=== PATIENT | male | born 1975 | race Hispanic/Latino ===

== ENCOUNTER 2017-07-27 06:19 | Observation (INO) | payer OTHER ==
[2017-07-27 06:34] VITALS: BMI 30.1
[2017-07-27] MEDS ORDERED: Sodium Chloride 0.9% 1,000 ML IV STA ×2 (07:03→07:19)
--- NOTE | 2017-07-27 07:49 | ED PDOC ---
HPI: Abdomen Time Seen by Provider: 07/27/17 07:03 Chief Complaint (Nursing): Abdominal Pain Chief Complaint (Provider): Abdominal Pain History Per: Patient History/Exam Limitations: no limitations Onset/Duration Of Symptoms: Days (x yesterday ) Current Symptoms Are (Timing): Constant Quality Of Discomfort: Sharp, Cramping Associated Symptoms: denies: Fever, Urinary Symptoms Additional Complaint(s): Mr. Alexis is a 41 year old male who presents to the ED complaining of lower abdominal pain since yesterday at 16:00. Patient reports pain is associated with several episodes of vomiting. Patient states he saw blood on toilet paper when wiping, but otherwise, normal bowel movement. Describes pain as sharp/ crampy and constant. Denies fever or urinary symptoms. Patient states he took "vitamin C" and pepto bismol without relief. PMD: Cesar Past Medical History Reviewed: Historical Data, Nursing Documentation, Vital Signs Vital Signs: Last Vital Signs Temp 98.4 F 07/27/17 06:34 Pulse 70 07/27/17 06:34 Resp 18 07/27/17 06:34 BP 158/90 H 07/27/17 06:34 Pulse Ox 99 07/27/17 10:16 - Medical History PMH: No Chronic Diseases - Surgical History Other surgeries: esophageal surgery - Family History Family History: States: Unknown Family Hx - Allergies Allergies/Adverse Reactions: Allergies Allergy/AdvReac Type Severity Reaction Status Date / Time No Known Allergies Allergy Verified 07/27/17 06:34 Review of Systems ROS Statement: Except As Marked, All Systems Reviewed And Found Negative Constitutional: Negative for: Fever Gastrointestinal: Positive for: Vomiting, Abdominal Pain Genitourinary Male: Negative for: Dysuria, Hematuria Physical Exam - Reviewed Nursing Documentation Reviewed: Yes Vital Signs Reviewed: Yes - Physical Exam Appears: Positive for: Well Head Exam: Positive for: ATRAUMATIC, NORMAL INSPECTION, NORMOCEPHALIC Skin: Positive for: Normal Color, Warm, Dry Eye Exam: Positive for: Normal appearance, EOMI, PERRL ENT: Positive for: Normal ENT Inspection Neck: Positive for: Normal Cardiovascular/Chest: Positive for: Regular Rate, Rhythm Respiratory: Positive for: Normal Breath Sounds. Negative for: Respiratory Distress Gastrointestinal/Abdominal: Positive for: Tenderness (Lower abdominal tenderness right greater than left) Back: Positive for: Normal Inspection Extremity: Positive for: Normal ROM. Negative for: Deformity Neurologic/Psych: Positive for: Alert, Oriented (x 3) - Laboratory Results Result Diagrams: 07/27/17 07:55 18 07:55 - ECG O2 Sat by Pulse Oximetry: 99 (RA) Pulse Ox Interpretation: Normal Medical Decision Making Medical Decision Making: Work up for acute abdominal pain with CT abd/pelvis and pain medicine Time: 07:03 Plan: - CMP - Lipase - CBC - Bentyl 10 mg PO STAT - Sodium Chloride 0.9% 1,000 ml IV, 1,000 mls/hr - Zofran ODT 4 mg PO STAT - Urinalysis Time: 07:19 - CT Abd and Pelvic IV Contrast - Sodium Chloride 0.9% 1,000 ml IV, 1,000 mls/hr - Toradol 30 mg IV ONCE Elevated WBC [15.6 K/uL] Time: 09:50 CT Abd and Pelvic IV Contrast FINDINGS: LOWER THORAX: Unremarkable. LIVER: Unremarkable. No gross lesion or ductal dilatation. GALLBLADDER AND BILE DUCTS: Unremarkable. PANCREAS: Unremarkable. No gross lesion or ductal dilatation. SPLEEN: Unremarkable. ADRENALS: Unremarkable. No mass. KIDNEYS AND URETERS: Unremarkable. No hydronephrosis. No solid mass. VASCULATURE: Unremarkable. No aortic aneurysm. BOWEL: Unremarkable. No obstruction. No gross mural thickening. APPENDIX: Distended appendix measuring 12 mm in diameter with mild periappendiceal inflammatory change. There is an appendicolith at the base of the appendix. No periappendiceal abscess or free air. Findings consistent with uncomplicated acute appendicitis. No cecal inflammatory changes. PERITONEUM: Unremarkable. No free fluid. No free air. LYMPH NODES: Unremarkable. No enlarged lymph nodes. BLADDER: Unremarkable. REPRODUCTIVE: Normal prostate BONES: No acute fracture. OTHER FINDINGS: None. IMPRESSION: Uncomplicated acute appendicitis. No periappendiceal abscess or free air. Remainder the examination is unremarkable. Time: 10:[address] Rocío Fuentes Scribe Attestation: Documented by Camron Hogan, acting as a scribe for Brandon Mcarthur III, DO Provider Scribe Attestation: All medical record entries made by the Scribe were at my direction and personally dictated by me. I have reviewed the chart and agree that the record accurately reflects my personal performance of the history, physical exam, medical decision making, and the department course for this patient. I have also personally directed, reviewed, and agree with the discharge instructions and disposition. Disposition - Disposition Forms: [employer] ([employer])
[2017-07-27 08:00] LABS: BASO % 0.3 % (0.0-2.0); EOS % 0.2 % (0.0-4.0); HEMOGLOBIN 15.9 g/dL (12.0-18.0); LYMPH # 1.3 K/uL (1.0-4.3); LYMPH % 8.4 % (20.0-40.0); MEAN CELL VOLUME 87.4 fl (80.0-94.0); MEAN CORPUSCULAR HEMOGLOBIN 30.2 pg (27.0-31.0); MEAN CORPUSCULAR HGB CONC 34.6 g/dL (33.0-37.0); MEAN PLATELET VOLUME 8.1 fl (7.2-11.7); MONO # 1.1 K/uL (0.0-0.8); NEUT # 13.2 K/uL (1.8-7.0); NEUT % 84.1 % (50.0-75.0); NRBC % 0.1 % (0.0-0.0); PLATELET COUNT 323 K/uL (130-400); RBC 5.27 Mil/uL (4.40-5.90); RED CELL DISTRIBUTION WIDTH 12.8 % (11.5-14.5); WHITE BLOOD COUNT 15.7 K/uL (4.8-10.8)
[2017-07-27 08:23] LABS: ALB/GLOB RATIO 1.2 (1.0-2.1); ALBUMIN 4.9 g/dL (3.5-5.0); ALT/SGPT 58 U/L (21-72); AST/SGOT 27 U/L (17-59); BLOOD UREA NITROGEN 13 mg/dl (9-20); CALCIUM 10.2 mg/dL (8.4-10.2); GFR AFRICAN-AMERICAN > 60; GFR NON-AFRICAN AMERICAN > 60; LIPASE 111 U/L (23-300)
[2017-07-27] MEDS ORDERED: Iohexol 300 100 ML IJ ONE (08:43)
[2017-07-27 08:53] LABS: LYMPHOCYTE 6 % (20-50); MONOCYTE 6 % (0-10); NEUTROPHIL 82 % (42-75); REACTIVE LYMPHOCYTES 6 % (0-0); TOTAL CELLS COUNTED 100
[2017-07-27 08:55] LABS: PLATELET ESTIMATE NORMAL (NORMAL)
--- NOTE | 2017-07-27 09:51 | CT ---
PROCEDURE: CT Abdomen and Pelvis with contrast HISTORY: lower abd pain, R>L, tenderness COMPARISON: None. TECHNIQUE: Contrast dose: 95 cc Omnipaque 300 Radiation dose: Total exam DLP = 906.20 mGy-cm. This CT exam was performed using one or more of the following dose reduction techniques: Automated exposure control, adjustment of the mA and/or kV according to patient size, and/or use of iterative reconstruction technique. FINDINGS: LOWER THORAX: Unremarkable. LIVER: Unremarkable. No gross lesion or ductal dilatation. GALLBLADDER AND BILE DUCTS: Unremarkable. PANCREAS: Unremarkable. No gross lesion or ductal dilatation. SPLEEN: Unremarkable. ADRENALS: Unremarkable. No mass. KIDNEYS AND URETERS: Unremarkable. No hydronephrosis. No solid mass. VASCULATURE: Unremarkable. No aortic aneurysm. BOWEL: Unremarkable. No obstruction. No gross mural thickening. APPENDIX: Distended appendix measuring 12 mm in diameter with mild periappendiceal inflammatory change. There is an appendicolith at the base of the appendix. No periappendiceal abscess or free air. Findings consistent with uncomplicated acute appendicitis. No cecal inflammatory changes. PERITONEUM: Unremarkable. No free fluid. No free air. LYMPH NODES: Unremarkable. No enlarged lymph nodes. BLADDER: Unremarkable. REPRODUCTIVE: Normal prostate BONES: No acute fracture. OTHER FINDINGS: None. IMPRESSION: Uncomplicated acute appendicitis. No periappendiceal abscess or free air. Remainder the examination is unremarkable.
[2017-07-27] MEDS ORDERED: Piperacillin/Tazobact 4.5 GM in Sodium Chloride 0.9% 100 ML IVPB STA (09:58)
[2017-07-27] MEDS ORDERED: Lactated Ringer's 1,000 ML IV SCH ×2 (10:45→19:45)
[2017-07-27 11:08] LABS: URINE BILIRUBIN NEGATIVE (NEGATIVE); URINE BLOOD NEGATIVE (NEGATIVE); URINE CLARITY CLEAR (Clear); URINE COLOR YELLOW (YELLOW); URINE GLUCOSE (UA) NEG (Normal); URINE LEUKOCYTE ESTERASE NEG Leu/uL (Negative); URINE PROTEIN NEGATIVE (NEGATIVE); URINE UROBILINOGEN 0.2-1.0 mg/dL (0.2-1.0)
[2017-07-27 11:17] LABS: INR 1.1 (0.9-1.2); PROTHROMBIN TIME 12.2 Seconds (9.8-13.1)
[2017-07-27 11:18] LABS: PARTIAL THROMBOPLASTIN TIME 27.5 Seconds (25.6-37.1)
--- NOTE | 2017-07-27 12:38 | CP.PCM.CON ---
<NataliyaEmiliano D - Last Filed: 07/27/17 12:33> History of Present Illness - History of Present Illness History of Present Illness: SURGERY CONSULT NOTE FOR DR. WHITFIELD 41M presents with abdominal pain. Patient states pain stated yesterday afternoon and was around the periumbilical region. He states nothing helped the pain and nothing made it worse. Pain has been constant keeping him away from sleeping well. Brock has now migrated towards the lower abdomen and on the right side. Patient denies nausea, but admits to inducing vomiting on himself because he felt like it would make him feel better, but it did not. Denies fevers, admits to chills. Never had this pain before. PMH: denies PSH: ligation of esophageal web. Social: denies tobacco, alcohol abuse, and illicit drug use Allergies: NKDA Past Patient History - Past Social History Smoking Status: Never Smoked - PSYCHIATRIC Hx Substance Use: No - SURGICAL HISTORY Hx Surgeries: No - ANESTHESIA Hx Anesthesia: No Meds Allergies/Adverse Reactions: Allergies Allergy/AdvReac Type Severity Reaction Status Date / Time No Known Allergies Allergy Verified 07/27/17 06:34 - Medications Medications: Current Medications Lactated Ringer's (Lactated Ringer's) 1,000 mls @ 125 mls/hr IV .Q8H [facility] Last Admin: 07/27/17 10:55 Dose: 125 mls/hr Piperacillin Sod/Tazobactam (Sod 3.375 gm/ Sodium Chloride) 100 mls @ 100 mls/ hr IVPB Q6 [facility] PRN Reason: Protocol Physical Exam - Constitutional Appears: Well, Non-toxic, No Acute Distress - Head Exam Head Exam: ATRAUMATIC - Eye Exam Eye Exam: EOMI, PERRL - ENT Exam ENT Exam: Mucous Membranes Moist - Respiratory Exam Respiratory Exam: Clear to Auscultation Bilateral, NORMAL BREATHING PATTERN - Cardiovascular Exam Cardiovascular Exam: REGULAR RHYTHM, +S1, +S2 - GI/Abdominal Exam GI & Abdominal Exam: Soft, Tenderness (RLQ). absent: Distended, Firm, Guarding , Rebound, Rigid - Extremities Exam Extremities exam: Negative for: pedal edema, tenderness - Neurological Exam Neurological exam: Alert, Oriented x3 - Psychiatric Exam Psychiatric exam: Normal Affect, Normal Mood - Skin Skin Exam: Dry, Intact, Normal Color, Warm Results - Vital Signs Recent Vital Signs: Last Vital Signs Temp 98.4 F 07/27/17 06:34 Pulse 65 07/27/17 10:42 Resp 16 07/27/17 10:42 BP 136/86 07/27/17 10:42 Pulse Ox 100 07/27/17 10:42 - Labs Result Diagrams: 07/27/17 07:55 07/27/17 07:55 Labs: Laboratory Results - last 24 hr 07/27/17 07/27/17 07/27/17 07:55 07:55 11:00 WBC 15.7 H RBC 5.27 Hgb 15.9 Hct 46.1 MCV 87.4 MCH 30.2 MCHC 34.6 RDW 12.8 Plt Count 323 MPV 8.1 Neut % (Auto) 84.1 H Lymph % (Auto) 8.4 L [place] % (Auto) 7.0 Eos % (Auto) 0.2 Baso % (Auto) 0.3 Neut # (Auto) 13.2 H Lymph # (Auto) 1.3 [place] # (Auto) 1.1 H Eos # (Auto) 0.0 Baso # (Auto) 0.0 Neutrophils % (Manual) 82 H Lymphocytes % (Manual) 6 L Reactive Lymphs % 6 H Monocytes % (Manual) 6 Platelet Estimate Normal RBC Morphology Normal Macrocytosis (manual) Slight PT INR APTT Sodium 146 Potassium 4.0 Chloride 102 Carbon Dioxide 24 Anion Gap 24 H BUN 13 Creatinine 0.9 Est GFR ( Amer) > 60 Est GFR (Non-Af Amer) > 60 Random Glucose 134 H Calcium 10.2 Total Bilirubin 1.0 AST 27 ALT 58 Alkaline Phosphatase 60 Total Protein 8.8 H Albumin 4.9 Globulin 3.9 Albumin/Globulin Ratio 1.2 Lipase 111 Urine Color Yellow Urine Clarity Clear Urine pH 6.0 Ur Specific [place] 1.040 H Urine Protein Negative Urine Glucose (UA) Neg Urine Ketones Negative Urine Blood Negative Urine Nitrate Negative Urine Bilirubin Negative Urine Urobilinogen 0.2-1.0 Ur Leukocyte Esterase Neg Urine RBC (Auto) 3 Urine Microscopic WBC < 1 07/27/17 11:00 WBC RBC Hgb Hct MCV MCH MCHC RDW Plt Count MPV Neut % (Auto) Lymph % (Auto) [place] % (Auto) Eos % (Auto) Baso % (Auto) Neut # (Auto) Lymph # (Auto) [place] # (Auto) Eos # (Auto) Baso # (Auto) Neutrophils % (Manual) Lymphocytes % (Manual) Reactive Lymphs % Monocytes % (Manual) Platelet Estimate RBC Morphology Macrocytosis (manual) PT 12.2 INR 1.1 APTT 27.5 Sodium Potassium Chloride Carbon Dioxide Anion Gap BUN Creatinine Est GFR ( Amer) Est GFR (Non-Af Amer) Random Glucose Calcium Total Bilirubin AST ALT Alkaline Phosphatase Total Protein Albumin Globulin Albumin/Globulin Ratio Lipase Urine Color Urine Clarity Urine pH Ur Specific [place] Urine Protein Urine Glucose (UA) Urine Ketones Urine Blood Urine Nitrate Urine Bilirubin Urine Urobilinogen Ur Leukocyte Esterase Urine RBC (Auto) Urine Microscopic WBC Assessment & Plan - Assessment and Plan (Free Text) Assessment: 41M with acute appendicitis Plan: NPO IVF Pain control Nausea control Abx OR today for lap appendectomy Discussed with Dr. Roseann An, PGY2 <Fabio Whitfield B - Last Filed: 07/28/17 17:25> Results - Vital Signs Recent Vital Signs: Last Vital Signs Temp 98.7 F 07/28/17 12:25 Pulse 78 07/28/17 12:25 Resp 18 07/28/17 12:25 BP 128/82 07/28/17 12:25 Pulse Ox 97 07/28/17 12:25 - Labs Result Diagrams: 07/28/17 07:25 07/28/17 07:25 Labs: Laboratory Results - last 24 hr 07/28/17 07/28/17 07:25 07:25 WBC 8.3 RBC 4.17 L Hgb 12.6 D Hct 36.7 MCV 88.0 MCH 30.3 MCHC 34.5 RDW 12.8 Plt Count 202 D MPV 8.1 Neut % (Auto) 69.8 Lymph % (Auto) 20.3 Jerome % (Auto) 8.6 Eos % (Auto) 1.1 Baso % (Auto) 0.2 Neut # (Auto) 5.8 Lymph # (Auto) 1.7 Jerome # (Auto) 0.7 Eos # (Auto) 0.1 Baso # (Auto) 0.0 Sodium 142 Potassium 3.2 L Chloride 102 Carbon Dioxide 27 Anion Gap 16 BUN 9 Creatinine 1.0 Est GFR ( Amer) > 60 Est GFR (Non-Af Amer) > 60 Random Glucose 103 Calcium 8.3 L Attending/Attestation - Attestation I have personally seen and examined this patient.: Yes I have fully participated in the care of the patient.: Yes I have reviewed all pertinent clinical information: Yes Notes (Text): Pt was seen and examined at bedside Agree with above note and assessment Pt with Abdominal Pain and RLQ tenderness present Labs and radiology reviewed Ass: Acute Appendicitis with Leucocytosis Plan : OR for Lap Appendectomy possible Open Consent NPO, IVF IV antibiotics c.w current mx Plan d.w pt in detail Risk and benefit explained in detail.
--- NOTE | 2017-07-27 14:15 | CP.PCM.HP ---
History of Present Illness - History of Present Illness History of Present Illness: CC: abdominal pain HPI: 41 y/o man w/ no pmh presents to the ED w/ complaints of abdominal pain. Patient reports right lower quadrant abdominal pain since yesterday at 16:00. The patient reports that pain started in the periumbilical area and then migrated down to the RLQ. Patient reports pain sharp in nature, never happened before, non-radiating, constant, worsened w/ movement and touch, w/ no alleviating factors. Patient was unable to sleep and pain did not subside thus prompting trip to ED. Patient states he took "vitamin C" and pepto bismol without relief. Patient reports pain is associated with chills and several episodes of vomiting. Patient states he saw some blood on toilet paper when wiping, but otherwise, normal bowel movement. Patient denies fever, headache, chest pain, SOB, diarrhea, or dysuria. PMD: Cesar PMH: denies meds: none allergies: NKDA PSH: denies Fam: denies Social: denies smoking, alcohol, and drugs ROS: 12 points assessed and negative unless otherwise reported in HPI Present on Admission - Present on Admission Any Indicators Present on Admission: No History of DVT/PE: No History of Uncontrolled Diabetes: No Urinary Catheter: No Decubitus Ulcer Present: No Review of Systems - Review of Systems All systems: reviewed and no additional remarkable complaints except - Constitutional Constitutional: As Per HPI, Chills. absent: Fever - EENT Eyes: absent: Change in Vision - Cardiovascular Cardiovascular: absent: Chest Pain - Respiratory Respiratory: absent: Dyspnea - Gastrointestinal Gastrointestinal: As Per HPI, Abdominal Pain, Nausea, Vomiting. absent: Diarrhea - Genitourinary Genitourinary: absent: Dysuria - Integumentary Integumentary: absent: Rash - Neurological Neurological: absent: Dizziness, Headaches Past Patient History - Past Social History Smoking Status: Never Smoked - PSYCHIATRIC Hx Substance Use: No - SURGICAL HISTORY Hx Surgeries: No - ANESTHESIA Hx Anesthesia: No Meds Allergies/Adverse Reactions: Allergies Allergy/AdvReac Type Severity Reaction Status Date / Time No Known Allergies Allergy Verified 07/27/17 06:34 Physical Exam - Constitutional Appears: No Acute Distress - Head Exam Head Exam: ATRAUMATIC, NORMAL INSPECTION, NORMOCEPHALIC - Eye Exam Eye Exam: Normal appearance - ENT Exam ENT Exam: Mucous Membranes Moist - Neck Exam Neck exam: Positive for: Full Rom. Negative for: Tenderness - Respiratory Exam Respiratory Exam: Clear to Auscultation Bilateral. absent: Accessory Muscle Use , Decreased Breath Sounds, Rales, Rhonchi, Wheezes, Respiratory Distress - Cardiovascular Exam Cardiovascular Exam: REGULAR RHYTHM. absent: Tachycardia - GI/Abdominal Exam GI & Abdominal Exam: Normal Bowel Sounds, Rebound, Soft, Tenderness. absent: Distended, Mass Additional comments: +Rovsing's sign, -psoas sign, +rebound tenderness - Extremities Exam Extremities exam: Negative for: calf tenderness, pedal edema, tenderness - Neurological Exam Neurological exam: Alert, Oriented x3 - Skin Skin Exam: Dry, Intact, Normal Color, Warm Results - Vital Signs Recent Vital Signs: Last Vital Signs Temp 98.4 F 07/27/17 06:34 Pulse 65 07/27/17 10:42 Resp 16 07/27/17 10:42 BP 136/86 07/27/17 10:42 Pulse Ox 100 07/27/17 10:42 - Labs Result Diagrams: 07/27/17 07:55 07/27/17 07:55 Labs: Laboratory Results - last 24 hr 07/27/17 07/27/17 07/27/17 07:55 07:55 11:00 WBC 15.7 H RBC 5.27 Hgb 15.9 Hct 46.1 MCV 87.4 MCH 30.2 MCHC 34.6 RDW 12.8 Plt Count 323 MPV 8.1 Neut % (Auto) 84.1 H Lymph % (Auto) 8.4 L [place] % (Auto) 7.0 Eos % (Auto) 0.2 Baso % (Auto) 0.3 Neut # (Auto) 13.2 H Lymph # (Auto) 1.3 [place] # (Auto) 1.1 H Eos # (Auto) 0.0 Baso # (Auto) 0.0 Neutrophils % (Manual) 82 H Lymphocytes % (Manual) 6 L Reactive Lymphs % 6 H Monocytes % (Manual) 6 Platelet Estimate Normal RBC Morphology Normal Macrocytosis (manual) Slight PT INR APTT Sodium 146 Potassium 4.0 Chloride 102 Carbon Dioxide 24 Anion Gap 24 H BUN 13 Creatinine 0.9 Est GFR ( Amer) > 60 Est GFR (Non-Af Amer) > 60 Random Glucose 134 H Calcium 10.2 Total Bilirubin 1.0 AST 27 ALT 58 Alkaline Phosphatase 60 Total Protein 8.8 H Albumin 4.9 Globulin 3.9 Albumin/Globulin Ratio 1.2 Lipase 111 Urine Color Yellow Urine Clarity Clear Urine pH 6.0 Ur Specific [place] 1.040 H Urine Protein Negative Urine Glucose (UA) Neg Urine Ketones Negative Urine Blood Negative Urine Nitrate Negative Urine Bilirubin Negative Urine Urobilinogen 0.2-1.0 Ur Leukocyte Esterase Neg Urine RBC (Auto) 3 Urine Microscopic WBC < 1 07/27/17 11:00 WBC RBC Hgb Hct MCV MCH MCHC RDW Plt Count MPV Neut % (Auto) Lymph % (Auto) [place] % (Auto) Eos % (Auto) Baso % (Auto) Neut # (Auto) Lymph # (Auto) [place] # (Auto) Eos # (Auto) Baso # (Auto) Neutrophils % (Manual) Lymphocytes % (Manual) Reactive Lymphs % Monocytes % (Manual) Platelet Estimate RBC Morphology Macrocytosis (manual) PT 12.2 INR 1.1 APTT 27.5 Sodium Potassium Chloride Carbon Dioxide Anion Gap BUN Creatinine Est GFR ( Amer) Est GFR (Non-Af Amer) Random Glucose Calcium Total Bilirubin AST ALT Alkaline Phosphatase Total Protein Albumin Globulin Albumin/Globulin Ratio Lipase Urine Color Urine Clarity Urine pH Ur Specific [place] Urine Protein Urine Glucose (UA) Urine Ketones Urine Blood Urine Nitrate Urine Bilirubin Urine Urobilinogen Ur Leukocyte Esterase Urine RBC (Auto) Urine Microscopic WBC Assessment & Plan (1) Acute appendicitis Status: Acute - Assessment and Plan (Free Text) Plan: c/w present management surgery recommendations appreciated patient NPO for OR this afternoon IVF LR @ 125 mL/h zosyn 3.375 gm IV Q6h day 1 zofran 4 mg IV Q4h prn Pain management: morphine 4 mg IV Q4h prn monitor for acute changes
[2017-07-27] MEDS ORDERED: Piperacillin/Tazobact 3.375 GM in Sodium Chloride 0.9% 100 ML IVPB SCH ×2 (16:00→21:00)
[2017-07-27] MEDS ORDERED: Lidocaine Hydrochloride 1% 10 ML ONE (17:21)
[2017-07-27] MEDS ORDERED: Bupivacaine 0.5% Inj(30mL) ONE (17:21)
[2017-07-27] MEDS ORDERED: Propofol 10 mg/ml Inj (20 ML) ONE (17:27)
[2017-07-27] MEDS ORDERED: Succinylcholine 200 mg/10 ml Inj IV ONE (17:27)
[2017-07-27] MEDS ORDERED: Midazolam 2 MG/2 ML VIAL ONE (17:27)
[2017-07-27] MEDS ORDERED: Lidocaine 4% (Laryng-O-Jet) Kit MM ONE (17:28)
[2017-07-27] MEDS ORDERED: Lidocaine 1% 5ml Abboject IV ONE (17:28)
[2017-07-27] MEDS ORDERED: Rocuronium 10 mg/ml (5 ml) ONE (17:29)
[2017-07-27] MEDS ORDERED: Lactated Ringer's 1,000 ML IV ONE (17:45)
[2017-07-27] MEDS ORDERED: Bupivacaine 0.5% 50 ML IJ ONE (18:10)
[2017-07-27] MEDS ORDERED: Lidocaine 1% (10 ml) Inj IV ONE (18:10)
[2017-07-27] MEDS ORDERED: Sevoflurane - Inhalation Anesthetic Liq (250 ml) ONE (18:25)
--- NOTE | 2017-07-27 19:33 | PCM.SURG1 ---
Surgeon's Initial Post Op Note - Surgeon's Notes Surgeon: Roseann Primer Charging Tool Setter: Adunbarin. Puentes. Pre-Operative Diagnosis: Acute appendicitis Operative Findings: Imflammed appendix. Fibrinous exudates. Post-Operative Diagnosis: Acute appendicitis Operation Performed: Laparoscopic appendectomy, drainage of fluid from pelvis Specimen/Specimens Removed: Appendix. Exudates. Estimated Blood Loss: EBL {In ML}: 5 Date of Surgery/Procedure: 07/27/17 Time of Surgery/Procedure: 18:00
[2017-07-27] MEDS: Piperacillin/Tazobact 3.375 GM in Sodium Chloride 0.9% 100 ML IVPB SCH (23:58)
[2017-07-28] MEDS: metroNIDAZOLE 500mg/100ml NS 100 ML IVPB SCH ×2 (01:25→09:42)
[2017-07-28 01:38] VITALS: RESP 18
--- NOTE | 2017-07-28 01:54 | OP ---
PROCEDURE DATE: 07/27/2017 PREOPERATIVE DIAGNOSIS: Acute appendicitis with leukocytosis. POSTOPERATIVE DIAGNOSIS: Acute suppurative appendicitis with small pelvic collection. PROCEDURE DONE: 1. Laparoscopic appendectomy. 2. Laparoscopic drainage of pelvic and periappendicular collection. SURGEON: Fabio Whitfield MD GRADUATE STUDENT INSTRUCTOR: Rudy Puentes and Ash An, PGY-2 resident TYPE OF ANESTHESIA: General endotracheal tube anesthesia. ESTIMATED BLOOD LOSS: Around 10 mL. DRAIN: None. PATHOLOGY: Appendix was sent for the pathology. COMPLICATIONS: None. INTRAOPERATIVE FINDINGS: The patient had acute suppurative appendicitis with pelvic and periappendicular purulent collection. DESCRIPTION OF PROCEDURE: On intraoperative steps, this 41-year-old male who was diagnosed with acute appendicitis with leukocytosis and the patient was consented for laparoscopic appendectomy, possible open, brought to the OR, and placed supine on the operating room table. After induction of the anesthesia, abdomen was prepped and draped in the usual sterile fashion. The supraumbilical transverse incision was made after incising the skin, subcutaneous tissue, and the fascia. The Marino port was placed. Pneumo was created. The 5-mm port was placed in suprapubic region. A 12-mm port was placed in the left lower quadrant. After that, grasper and dissector were introduced and appendix appeared to be extremely thickened, edematous, and the mesoappendix was resected with LigaSure and the base of the appendix was resected with the MARY. The patient had periappendicular and pelvic purulent collection that was drained and suction irrigation was done. There was some slough surrounding the appendix area that was removed and after proper cleaning and suction irrigation and a prompt proper hemostasis, appendix was taken out through the umbilical port site and was sent off the table for the pathology. All the port was taken out under vision. Pneumo was deflated. The umbilical port site was closed in 2 layer, the fascia with 0 Vicryl interrupted sutures, skin with 4-0 Monocryl, and dry sterile dressing was applied. The patient tolerated the procedure well. Count of the instrument and gauze was correct. There was no apparent complication. The patient was extubated in the OR and sent to the Postanesthesia Care Unit in stable condition. Fabio Whitfield MD [facility] # [id number] YUDI
[2017-07-28] MEDS: Piperacillin/Tazobact 3.375 GM in Sodium Chloride 0.9% 100 ML IVPB SCH ×2 (05:25→12:38)
[2017-07-28 07:57] LABS: BASO % 0.2 % (0.0-2.0); EOS # 0.1 K/uL (0.0-0.7); EOS % 1.1 % (0.0-4.0); HEMOGLOBIN 12.6 g/dL (12.0-18.0); LYMPH # 1.7 K/uL (1.0-4.3); LYMPH % 20.3 % (20.0-40.0); MEAN CORPUSCULAR HEMOGLOBIN 30.3 pg (27.0-31.0); MEAN CORPUSCULAR HGB CONC 34.5 g/dL (33.0-37.0); MEAN PLATELET VOLUME 8.1 fl (7.2-11.7); MONO # 0.7 K/uL (0.0-0.8); MONO % 8.6 % (0.0-10.0); NEUT # 5.8 K/uL (1.8-7.0); NEUT % 69.8 % (50.0-75.0); RBC 4.17 Mil/uL (4.40-5.90); RED CELL DISTRIBUTION WIDTH 12.8 % (11.5-14.5); WHITE BLOOD COUNT 8.3 K/uL (4.8-10.8)
--- NOTE | 2017-07-28 08:04 | CP.PCM.PN ---
Addendum entered and electronically signed by Ochoa Wells DPM 07/28/17 09:37 : Discussed plan with Dr. Whitfield WBC=8.3, absent leukocytosis Patient is clear for discharge per general surgery Will follow up in office with Dr. Whitfield in 10 days Original Note: <Ochoa Wells - Last Filed: 07/28/17 08:09> Subjective - Date & Time of Evaluation Date of Evaluation: 07/28/17 Time of Evaluation: 07:00 - Subjective Subjective: General Surgery Progress Note-Dr. Whitfield 41 y.o male POD#1 Laparoscopic appendectomy and drainage of fluid from pelvis. Patient is seen resting comfortably in bed, in NAD, and AAoX3. Patient denies nausea and vomiting. Patient reports having a fever yesterday. Feeling good today. Reports able to pass gas once. Reports able to ambulate to the bathroom without issues. Reports a mild pain that comes and go. Objective - Vital Signs/Intake and Output Vital Signs (last 24 hours): Temp Pulse Resp BP Pulse Ox 98.6 F 69 18 114/77 98 07/28/17 05:20 07/28/17 05:20 07/28/17 05:20 07/28/17 05:20 07/28/17 05:20 Intake and Output: 07/28/17 07/28/17 06:59 18:59 Intake Total 1775 Output Total 700 Balance 1075 - Medications Medications: Current Medications Acetaminophen (Tylenol 650 Mg Supp) 650 mg WA ONCE PRN PRN Reason: Fever >100.4 F Last Admin: 07/27/17 16:13 Dose: 650 mg Acetaminophen (Tylenol 325mg Tab) 650 mg PO Q6 PRN PRN Reason: Fever >100.4 F Last Admin: 07/27/17 21:13 Dose: 650 mg Lactated Ringer's (Lactated Ringer's) 1,000 mls @ 125 mls/hr IV .Q8H KAEL Last Admin: 07/27/17 10:55 Dose: 125 mls/hr Metronidazole (Flagyl 500mg/100ml Ns) 100 mls @ 100 mls/hr IVPB Q8 KAEL PRN Reason: Protocol Last Admin: 07/28/17 01:25 Dose: 100 mls/hr Lactated Ringer's (Lactated Ringer's) 1,000 mls @ 100 mls/hr IV .Q10H KAEL Last Admin: 07/28/17 01:26 Dose: 100 mls/hr Piperacillin Sod/Tazobactam (Sod 3.375 gm/ Sodium Chloride) 100 mls @ 100 mls/ hr IVPB Q6H KAEL PRN Reason: Protocol Last Admin: 07/28/17 05:25 Dose: 100 mls/hr Morphine Sulfate (Morphine) 4 mg IVP Q4 PRN PRN Reason: Pain, severe (8-10) Last Admin: 07/28/17 05:22 Dose: 4 mg Ondansetron HCl (Zofran Inj) 4 mg IVP Q4 PRN PRN Reason: Nausea/Vomiting - Labs Labs: 07/27/17 07:55 07/27/17 07:55 PT 12.2 Seconds (9.8-13.1) 07/27/17 11:00 INR 1.1 (0.9-1.2) 07/27/17 11:00 APTT 27.5 Seconds (25.6-37.1) 07/27/17 11:00 - Constitutional Appears: Well, Non-toxic, No Acute Distress - ENT Exam ENT Exam: Mucous Membranes Moist - Neck Exam Neck Exam: Normal Inspection - Respiratory Exam Respiratory Exam: NORMAL BREATHING PATTERN - Cardiovascular Exam Cardiovascular Exam: +S1, +S2 - GI/Abdominal Exam GI & Abdominal Exam: Tenderness, Normal Bowel Sounds - Neurological Exam Neurological Exam: Alert, Awake, Oriented x3 - Psychiatric Exam Psychiatric exam: Normal Affect, Normal Mood - Skin Skin Exam: Dry, Intact, Normal Color, Warm Assessment and Plan - Assessment and Plan (Free Text) Assessment: 41 y.o male POD#1 Laparoscopic appendectomy and drainage of fluid from pelvis. Plan: Patient examined and evaluated Discussed plan with attending Encourage to walk more Advance to regular diet C/w abx Patient is clear for discharge once WBC goes down Patient to be discharge home on Levaquin and Flagyl Patient to follow up with Dr. Whitfield in 10 days Further recommendations per Dr. Whitfield <Fabio Whitfield - Last Filed: 07/28/17 17:27> Objective - Vital Signs/Intake and Output Vital Signs (last 24 hours): Temp Pulse Resp BP Pulse Ox 98.7 F 78 18 128/82 97 07/28/17 12:25 07/28/17 12:25 07/28/17 12:25 07/28/17 12:25 07/28/17 12:25 Intake and Output: 07/28/17 07/28/17 06:59 18:59 Intake Total 1775 1495 Output Total 700 Balance 1075 1495 - Labs Labs: 07/28/17 07:25 07/28/17 07:25 PT 12.2 Seconds (9.8-13.1) 07/27/17 11:00 INR 1.1 (0.9-1.2) 07/27/17 11:00 APTT 27.5 Seconds (25.6-37.1) 07/27/17 11:00 Attending/Attestation - Attestation I have personally seen and examined this patient.: Yes I have fully participated in the care of the patient.: Yes I have reviewed all pertinent clinical information, including history, physical exam and plan: Yes Notes (Text): Pt is improved clinically Can be DC home f.u as out pt Po chente for 7 days Plan d.w primary team.
[2017-07-28 08:18] LABS: BLOOD UREA NITROGEN 9 mg/dl (9-20); CALCIUM 8.3 mg/dL (8.4-10.2); GFR AFRICAN-AMERICAN > 60; GFR NON-AFRICAN AMERICAN > 60
[2017-07-28 08:47] VITALS: O2SAT 97
--- NOTE | 2017-07-28 11:57 | CP.PCM.DIS ---
Provider - Provider Date of Admission: 07/27/17 10:19 Attending physician: Alfredo Alford MD Time Spent in preparation of Discharge (in minutes): 30 Hospital Course - Lab Results Lab Results: Most Recent Lab Values WBC 8.3 K/uL (4.8-10.8) 07/28/17 07:25 RBC 4.17 Mil/uL (4.40-5.90) L 07/28/17 07:25 Hgb 12.6 g/dL (12.0-18.0) D 07/28/17 07:25 Hct 36.7 % (35.0-51.0) 07/28/17 07:25 MCV 88.0 fl (80.0-94.0) 07/28/17 07:25 MCH 30.3 pg (27.0-31.0) 07/28/17 07:25 MCHC 34.5 g/dL (33.0-37.0) 07/28/17 07:25 RDW 12.8 % (11.5-14.5) 07/28/17 07:25 Plt Count 202 K/uL (130-400) D 07/28/17 07:25 MPV 8.1 fl (7.2-11.7) 07/28/17 07:25 Neut % (Auto) 69.8 % (50.0-75.0) 07/28/17 07:25 Lymph % (Auto) 20.3 % (20.0-40.0) 07/28/17 07:25 [place] % (Auto) 8.6 % (0.0-10.0) 07/28/17 07:25 Eos % (Auto) 1.1 % (0.0-4.0) 07/28/17 07:25 Baso % (Auto) 0.2 % (0.0-2.0) 07/28/17 07:25 Neut # (Auto) 5.8 K/uL (1.8-7.0) 07/28/17 07:25 Lymph # (Auto) 1.7 K/uL (1.0-4.3) 07/28/17 07:25 [place] # (Auto) 0.7 K/uL (0.0-0.8) 07/28/17 07:25 Eos # (Auto) 0.1 K/uL (0.0-0.7) 07/28/17 07:25 Baso # (Auto) 0.0 K/uL (0.0-0.2) 07/28/17 07:25 Neutrophils % (Manual) 82 % (42-75) H 07/27/17 07:55 Lymphocytes % (Manual) 6 % (20-50) L 07/27/17 07:55 Reactive Lymphs % 6 % (0-0) H 07/27/17 07:55 Monocytes % (Manual) 6 % (0-10) 07/27/17 07:55 Platelet Estimate Normal (NORMAL) 07/27/17 07:55 RBC Morphology Normal (NORMAL) 07/27/17 07:55 Macrocytosis (manual) Slight 07/27/17 07:55 PT 12.2 Seconds (9.8-13.1) 07/27/17 11:00 INR 1.1 (0.9-1.2) 07/27/17 11:00 APTT 27.5 Seconds (25.6-37.1) 07/27/17 11:00 Sodium 142 mmol/l (132-148) 07/28/17 07:25 Potassium 3.2 MMOL/L (3.6-5.0) L 07/28/17 07:25 Chloride 102 mmol/L (98-107) 07/28/17 07:25 Carbon Dioxide 27 mmol/L (22-30) 07/28/17 07:25 Anion Gap 16 (10-20) 07/28/17 07:25 BUN 9 mg/dl (9-20) 07/28/17 07:25 Creatinine 1.0 mg/dl (0.8-1.5) 07/28/17 07:25 Est GFR ( Amer) > 60 07/28/17 07:25 Est GFR (Non-Af Amer) > 60 07/28/17 07:25 Random Glucose 103 mg/dL (75-110) 07/28/17 07:25 Calcium 8.3 mg/dL (8.4-10.2) L 07/28/17 07:25 Total Bilirubin 1.0 mg/dl (0.2-1.3) 07/27/17 07:55 AST 27 U/L (17-59) 07/27/17 07:55 ALT 58 U/L (21-72) 07/27/17 07:55 Alkaline Phosphatase 60 U/L (38-126) 07/27/17 07:55 Total Protein 8.8 G/DL (6.3-8.2) H 07/27/17 07:55 Albumin 4.9 g/dL (3.5-5.0) 07/27/17 07:55 Globulin 3.9 gm/dL (2.2-3.9) 07/27/17 07:55 Albumin/Globulin Ratio 1.2 (1.0-2.1) 07/27/17 07:55 Lipase 111 U/L (23-300) 07/27/17 07:55 Urine Color Yellow (YELLOW) 07/27/17 11:00 Urine Clarity Clear (Clear) 07/27/17 11:00 Urine pH 6.0 (5.0-8.0) 07/27/17 11:00 Ur Specific [place] 1.040 (1.003-1.030) H 07/27/17 11:00 Urine Protein Negative mg/dL (NEGATIVE) 07/27/17 11:00 Urine Glucose (UA) Neg mg/dL (Normal) 07/27/17 11:00 Urine Ketones Negative mg/dL (NEGATIVE) 07/27/17 11:00 Urine Blood Negative (NEGATIVE) 07/27/17 11:00 Urine Nitrate Negative (NEGATIVE) 07/27/17 11:00 Urine Bilirubin Negative (NEGATIVE) 07/27/17 11:00 Urine Urobilinogen 0.2-1.0 mg/dL (0.2-1.0) 07/27/17 11:00 Ur Leukocyte Esterase Neg [place]/uL (Negative) 07/27/17 11:00 Urine RBC (Auto) 3 /hpf (0-3) 07/27/17 11:00 Urine Microscopic WBC < 1 /hpf (0-5) 07/27/17 11:00 - Hospital Course Hospital Course: pt came in with acute appendicitis, s/p lap appendectomy - Date & Time of H&P Date of H&P: 07/27/17 Discharge Exam - Head Exam Head Exam: ATRAUMATIC, NORMAL INSPECTION, NORMOCEPHALIC - Eye Exam Eye Exam: EOMI, Normal appearance, PERRL Pupil Exam: NORMAL ACCOMODATION - Respiratory Exam Respiratory Exam: Clear to PA & Lateral - Cardiovascular Exam Cardiovascular Exam: REGULAR RHYTHM - GI/Abdominal Exam GI & Abdominal Exam: Normal Bowel Sounds, Unremarkable - Extremities Exam Extremities exam: normal inspection - Neurological Exam Neurological exam: Alert, Oriented x3 - Psychiatric Exam Psychiatric exam: Normal Affect, Normal Mood - Skin Skin Exam: Normal Color Discharge Plan - Follow Up Plan Condition: GOOD Disposition: HOME/ ROUTINE Instructions: Appendicitis in Adults, How to Wash Your Hands Properly, How to Prevent Surgical Site Infections, Appendectomy, Laparoscopic Surgery (DC) Additional Instructions: follow up Dr. Whitfield in 10 days Regular foods as tolerated Levaquin 500 mg take one tablet once a day for 5 days Flagyl 500 mg take one tablet every 8 hours for 5 days Percocet 5/325mg one tablet every 6 hours as needed for post op pain no heavy lifting ( more than 10 pounds) no soaking in bath , no pools seek medical attention if pain is not relieved by RX, vomiting, abdominal distension, fever 101 or above , or for any other concerns Referrals: Fabio Whitfield MD [Staff Provider] - Clinical Quality Measures - CQM - Stroke Antithrombotic Prescribed: Yes (Levaquin and flagyl for 5 days)
[2017-07-28 12:56] VITALS: BP 128/82; PULSE 78; TEMP 98.7
== END 2017-07-28 14:23 | disposition home or self-care (01) ==
LOC: H.ER 06:19 → H.ERHOLD 10:19 → H.PEDS 22:32
PROVIDERS: ADMIT Internal Medicine; ATTEND Internal Medicine
DX: K35.89 Other acute appendicitis (principal); D72.828 Other elevated white blood cell count; B95.7 Other staphylococcus as the cause of diseases classified elsewhere
CPT/HCPCS: 36415; 44970; 74177; 80048; 80053; 81003; 83690; 85025; 85610; 85730; 87070; 88304; 96361; 96365; 96375; 99284; G0378; J0330; J1885; J2250; J2270; J2543; J2704; J2765; J3010; J7040; J7120; Q9967